=== PATIENT | male | born 1995 ===

== ENCOUNTER 2023-06-07 17:37 | Emergency (ER) | payer BC, OTHER ==
[~2023-06-07] VITALS: Ht 177.8 cm; Wt 89.2 kg
[2023-06-07 17:57] VITALS: BP 136/103; PULSE 76; RESP 16; TEMP 98; O2SAT 98
[2023-06-07] MEDS ORDERED: metoclopramide 10mg tablet PO ONE (23:45)
[2023-06-07] MEDS ORDERED: HYDROcodone/acetaminophen 10/325mg tab PO ONE (23:45)
== END 2023-06-08 00:11 | disposition left against medical advice (07) ==
LOC: ER 17:38
DX: G43.909 Migraine, unspecified, not intractable, without status migrainosus (principal); Z53.21 Procedure and treatment not carried out due to patient leaving prior to being seen by health care provider
CPT/HCPCS: 99281